=== PATIENT | male | born 1955 | race Caucasian/White ===

== ENCOUNTER 2020-12-09 16:31 | Outpatient (CLI) | payer OTHER, SELFPAY ==
--- NOTE | 2020-12-09 | ECG_ITS ---
Measurements Intervals [place] Rate: 62 P: 9 MD: 152 QRS: 49 QRSD: 109 T: 65 QT: 414 QTc: 423 Interpretive Statements SINUS RHYTHM INCOMPLETE RIGHT BUNDLE BRANCH BLOCK BASELINE ARTIFACT- AVL, AVF BORDERLINE ECG Electronically Signed On 12-09-2020 17:41:06 CDT by Gaurav Johnson D.O.
[2020-12-09 16:56] LABS: Hematocrit 42.9 % (42.0-52.0); Hemoglobin 14.8 g/dL (14.0-18.0)
[2020-12-09 17:06] LABS: Estimated Glomerular Filt Rate > 60; Glucose 116 mg/dL (75-110)
[2020-12-09 17:12] LABS: Urine Cotinine NEGATIVE
[2020-12-09 18:29] LABS: Hemoglobin A1C 6.5 % (<5.7)
== END 2020-12-09 16:32 | disposition home or self-care (01) ==
PROVIDERS: Visit Provider Orthopaedic Surgery
DX: Z01.818 Encounter for other preprocedural examination (principal); M16.12 Unilateral primary osteoarthritis, left hip; I45.10 Unspecified right bundle-branch block
CPT/HCPCS: 80307; 82040; 82565; 82947; 83036; 85014; 85018; 93005

== ENCOUNTER 2021-01-19 09:40 | Outpatient (CLI) | payer OTHER, SELFPAY ==
[2021-01-19 10:59] LABS: Basophils Absolute Auto 0.1 K/mm3 (0.0-0.1); Basophils Percent Auto 1.1 % (0.2-1.2); Eosinophils Absolute Auto 0.2 K/mm3 (0-0.3); Eosinophils Percent Auto 4.2 % (0-4.4); Hematocrit 44.4 % (42.0-52.0); Hemoglobin 15.2 g/dL (14.0-18.0); Immature Granulocyte Absolute 0.02 K/mm3 (0.00-0.031); Immature Granulocyte Percent A 0.4 % (0-0.5); Lymphocytes Absolute Auto 1.68 K/mm3 (0.9-3.2); Lymphocytes Percent Auto 35.6 % (18.3-44.2); Mean Corpuscular HGB Conc 34.2 g/dl (32-36); Mean Corpuscular Hemoglobin 30.5 pg (26-34); Mean Corpuscular Volume 89.2 fl (80-100); Monocytes Absolute Auto 0.4 K/mm3 (0.1-0.6); Monocytes Percent Auto 8.9 % (2.6-8.5); Neutrophils Absolute Auto 2.4 K/mm3 (1.3-6.7); Neutrophils Percent Auto 49.8 % (45.5-73.1); Platelet Count Result 152 k/mm3 (150-375); Red Blood Count 4.98 M/mm3 (4.6-6.20); Red Cell Distribution Width 12.7 % (11.5-14.5); White Blood Count 4.7 K/mm3 (4.5-10.0)
[2021-01-19 11:08] LABS: Hemoglobin A1C 6.7 % (<5.7)
[2021-01-19 11:09] LABS: Albumin Level 4.2 g/dL (3.5-5.1); Estimated Glomerular Filt Rate > 60; Glucose 117 mg/dL (75-110)
[2021-01-19 11:10] LABS: Urine Cotinine NEGATIVE
== END 2021-01-19 09:41 | disposition home or self-care (01) ==
LOC: ANHSURGERY 09:47
PROVIDERS: PCP Family Medicine; Visit Provider Orthopaedic Surgery
DX: M16.12 Unilateral primary osteoarthritis, left hip (principal)
CPT/HCPCS: 80307; 82040; 82565; 82947; 83036; 85025; 87081

== ENCOUNTER 2021-02-10 01:02 | Day surgery (SDC) | payer OTHER, SELFPAY ==
[2021-01-19 09:57] VITALS: BP 148/87; PULSE 62; RESP 16; TEMP 36.4; O2SAT 97; BMI 29.1
--- NOTE | 2021-02-09 10:18 | WPDANESEPPF ---
Anes - Initial Pre Proc Eval Procedure: Operation Date: 02/10/21 07:30 Proposed Procedures p Left Total Hip Arthroplasty - Nayan Allred MD Date/Time: 02/09/21 10:18 Surgeon: Nayan Allred MD Pre Op Diagnosis: Primary OA Left Hip Patient Data Age: 65 Gender: M Height: 1.93 m Weight: 108.6 kg Last Vital Signs Temp 36.4 C 01/19/21 09:57 Pulse 62 01/19/21 09:57 Resp 16 01/19/21 09:57 BP 148/87 H 01/19/21 09:57 Pulse Ox 97 01/19/21 09:57 Allergies Allergy/AdvReac Type Severity Reaction Status Date / Time meperidine AdvReac Unknown Nausea Verified 02/10/21 06:19 Home Medications Medication Instructions Recorded Confirmed Type hydrocodone-acetaminophen 1 tablet PO Q6-8H PRN 01/19/21 02/10/21 History naproxen sodium [Aleve] 440 mg PO BID PRN 01/19/21 02/10/21 History amoxicillin 500 mg tablet 500 mg PO ONCE #4 tablet 02/07/21 Rx Patient hx anesthesia problems: none Family hx anesthesia problems: none PMFSH Past Medical History Medical History (Updated 09/10/19 @ 11:28 by Nayan Allred MD) Biceps rupture, distal (~02/26/18) Primary osteoarthritis of left hip Surgical History Surgical History (Updated 09/10/19 @ 10:58 by Yuli Ortiz) History of arthroscopy of knee (~2007) History of arthroscopy of knee (~1996) History of partial knee replacement (~03/21/16) History of total right hip arthroplasty (~08/30/17) Family History Family History (Updated 02/11/16 @ 23:19 by DOCTOR UNKNOWN) Mother Family history of diabetes mellitus in first degree relative Social History Social History Smoking status: Never smoker Alcohol intake: current Alcohol use details: 1-2 OZ PER WEEK OF [place] Substance use: never Living arrangements: with family Additional living arrangements comments: Spiritual care concerns: No Anes - Eval Final PreProcedure Day of Procedure 02/09/21 10:18 Patient weight: overweight Heart: regular rate and rhythm Lungs: clear to auscultation and normal air movement Airway: Mallampati scale class II Neurological: alert and oriented Last oral intake: >/= 8 hours ASA classification: II Emergent: no Anesthetic plan: proceed Anesthesia type and monitoring: general ETT and standard monitoring Informed Consent: The patient's anesthetic plan and its attendant risks and benefits were discussed with the patient/family/POA. Questions were solicited and answers provided to the satisfaction of the patient/family/POA.
[2021-02-10] VITALS (19 sets, daily range): BP systolic 114–149; BP diastolic 66–93; PULSE 53–74; RESP 7–18; TEMP 36.2–37.1; O2SAT 92–99; BMI 29.1
--- NOTE | ~2021-02-10 | XR_ITS ---
EXAMINATION: XR hip LT min 2V DATE: 02/10/2021 10:45 INDICATION: Postoperative evaluation following left total hip arthroplasty TECHNIQUE: Anteroposterior and lateral views of the left hip were obtained. COMPARISON: 11/29/2020 FINDINGS: Interval placement of a left total hip arthroplasty which appears well seated in near anatomic alignm ent. Again seen is a prior right total hip arthroplasty. Surgical expected subcutaneous gas in the po stoperative bed. No fractures identified. IMPRESSION: 1. Left total hip arthroplasty, negative for postoperative purposes. Reviewed, dictated and finalized at location A.
[2021-02-10] MEDS: ACETAMINOPHEN 500 MG TABLET 1000 MG PO (06:29)
[2021-02-10] MEDS: LACTATED RINGERS 1,000 ML 30 ML IV CONT ×2 (07:04→10:18)
[2021-02-10] MEDS: TRANEXAMIC ACID 1,000MG/ISO100 1,000 MG/100 ML BAG 200 MG IVPB (07:04)
--- NOTE | 2021-02-10 07:10 | WPDHPUPDATE1 ---
History and Physical Update Update Date/Time: 02/10/21 07:10 History and Physical has been reviewed, including an updated exam of the patient. There are NO changes in the patient's condition. Risks, benefits, and alternatives have been discussed and questions answered. Patient agrees to proceed with procedure.
--- NOTE | 2021-02-10 07:20 | SUR.PREOP ---
0715; NOTIFIED DR DODGE OF SKIN INTERGRITY. LT OUTER CALF HAS HEALING SCAB. LT INNER THIGH TINY INGROWN HAIR, AND WHEN THE TECH SHAVED, SHE NICKED THE LT HIP X3 IN PT'S STRETCH FIGUEROA. NO BLEEDING. DR DODGE ACKNOWLEDGED.
[2021-02-10] MEDS: ceFAZolin 2 GM/D5W 50 ML 2 GM/50 ML BAG IVPB ×3 (07:34→23:37)
--- NOTE | 2021-02-10 10:47 | W.PM.PROC2 ---
Procedure Note - Detailed Date of Procedure 02/10/21 Pre-op Diagnosis Primary OA Left Hip Post-op Diagnosis same Procedure Performed Left total hip arthroplasty. Surgeon Nayan Allred MD Manager Small Business Esperanza Odonnell PA-C Anesthesia general Description of Procedure Physician casting assistant, Esperanza Odonnell PA-C, required for surgery; including patient positioning, draping, tissue retraction, maintaining instrument position, hip dislocation and reduction, wound closure, and dressing placement. OPERATIVE DETAILS: The patient was given preoperative antibiotics. A general anesthetic was administered. The patient was carefully placed in the lateral decubitus position on the PEG board. The shoulders and hips were carefully positioned for component and leg length positioning reference. The hip was prepped and draped in the usual sterile fashion. A longitudinal incision was created over the posterior aspect of the greater trochanter. Careful dissection was brought down through the deep fascia with electrocautery. A minimally invasive optimized posterior approach to the hip was performed. The short external rotators and capsule were taken down in an L-shaped capsulotomy. The tissue was tagged for later repair using number 2 high strength suture. The femoral neck was measured and taken in situ. The femoral head was removed. The acetabulum was carefully exposed. The inferior capsule was released. The labrum was resected. The acetabulum was sequentially reamed to the intended cup size. The cup was impacted into position with excellent press-fit. Typical anatomic landmarks, including the bony contact points as well as the inferior transverse acetabular ligament were used to confirm cup positioning with preoperative templating. Attention was turned to the femur, which was carefully exposed. The hip was reamed and then broached sequentially. Excellent press-fit was obtained with the broach. The hip was trialed. Measurements were utilized, including the lesser trochanter as well as the center of the femoral head and the tip of the trochanter, and excellent assessment of the offset and leg lengths were confirmed. The real component was impacted into position. Trialing confirmed appropriate leg length and offset with soft tissue balancing as well apparent feel of the leg, both at the knee and the heel. Soft tissues were assessed using the the iliotibial band. Reduction of the posterior capsule and external rotators were also used as a secondary assessment. The hip was copiously irrigated with pulsatile lavage antibiotic solution periodically throughout the procedure. The real components were then assembled and reduced. The hip was stable throughout typical maneuvers, including extension, external rotation to 70 degrees, the position of sleep as well as flexion to 90 degrees with internal rotation to 40 degrees. The shake test confirmed stability without impingement. Osteophytes were removed from the anterior femur and acetabulum to improve impingement free motion Yes. The short external rotators and capsule were repaired back to the posterior trochanter through drill holes. The deep fascia was repaired with running number 2 Quill suture, followed by 0 Stratafix suture and 2-0 Stratafix suture in the dermis. Steri-Strips were placed on the skin, followed by a sterile silver occlusive dressing. There were no complications. Meticulous hemostasis was maintained with the AquaMantys device. The patient was brought to the recovery room in stable condition. There were no complications. Implants The Accolade II hip stem, 127 degree size 8 , was utilized with excellent press-fit. The 46 mm Trident II acetabular component was impacted with excellent press-fit stability. The +7.5 , 36 mm Biolox ceramic femoral head was utilized. Estimated Blood Loss -300.0 Drains No Complications No immediate complications Condition stable Disposition PACU
[2021-02-10] MEDS: fentaNYL CITRATE INJ (*CRX) 100 MCG/2 ML VIAL 25 MCG IV PUSH ×4 (10:57→11:31)
--- NOTE | 2021-02-10 12:12 | SUR.PHASEI ---
PT EATING ICE. AWAITING BED ASSIGNMENT.
--- NOTE | 2021-02-10 14:13 | PC.NURSE ---
Admission Note: The patient,Jc Caldera,65 y/o, was given written information regarding hospital policies, unit procedures and contact persons. Patient's smoking status: Never smoker.
[2021-02-10 15:00] LABS: Hematocrit 40.6 % (42.0-52.0); Hemoglobin 13.6 g/dL (14.0-18.0)
[2021-02-10] MEDS: KETOROLAC 15 MG/ML VIAL (*BKC) IV PUSH ×2 (15:55→21:49)
[2021-02-10] MEDS: oxyCODONE HCL (*CRX) 5 MG TAB IR PO (17:04)
[2021-02-10] MEDS: DOCUSATE SODIUM 100 MG CAPSULE PO (17:04)
[2021-02-10] MEDS: ASPIRIN 81 MG ENTERIC TABLET PO (17:04)
[2021-02-10] MEDS: FAMOTIDINE 20 MG TABLET PO (21:49)
[2021-02-11] MEDS: KETOROLAC 15 MG/ML VIAL (*BKC) IV PUSH ×2 (02:53→09:49)
[2021-02-11 03:37] VITALS: BP 116/65; PULSE 62; RESP 18; TEMP 36.3; O2SAT 93
[2021-02-11 05:57] LABS: Basophils Percent Auto 0.4 % (0.2-1.2); Hematocrit 37.8 % (42.0-52.0); Hemoglobin 12.5 g/dL (14.0-18.0); Immature Granulocyte Absolute 0.02 K/mm3 (0.00-0.031); Immature Granulocyte Percent A 0.3 % (0-0.5); Immature Platelet Fraction Pct 6.6 % (0.9-11.2); Lymphocytes Absolute Auto 1.31 K/mm3 (0.9-3.2); Lymphocytes Percent Auto 17.5 % (18.3-44.2); Mean Corpuscular HGB Conc 33.1 g/dl (32-36); Mean Corpuscular Hemoglobin 30.3 pg (26-34); Mean Corpuscular Volume 91.5 fl (80-100); Mean Platelet Volume 11.4 fl (7.4-10.4); Monocytes Absolute Auto 0.6 K/mm3 (0.1-0.6); Monocytes Percent Auto 7.5 % (2.6-8.5); Neutrophils Absolute Auto 5.6 K/mm3 (1.3-6.7); Neutrophils Percent Auto 74.3 % (45.5-73.1); Platelet Count Result 117 k/mm3 (150-375); Red Blood Count 4.13 M/mm3 (4.6-6.20); White Blood Count 7.5 K/mm3 (4.5-10.0)
[2021-02-11 06:09] LABS: Anion Gap 6 mmol/L (8-16); Blood Urea Nitrogen 19 mg/dL (9-20); Calcium 8.3 mg/dL (8.4-10.2); Carbon Dioxide 25 mmol/L (22-30); Chloride 106 mmol/L (98-107); Estimated CRCL calculation 79 ml/min; Estimated Glomerular Filt Rate > 60; Glucose 167 mg/dL (65-110); Potassium 4.2 mmol/L (3.4-5.0); Sodium 137 mmol/L (137-145)
[2021-02-11] MEDS: ceFAZolin 2 GM/D5W 50 ML 2 GM/50 ML BAG IVPB (06:58)
[2021-02-11 07:37] VITALS: BP 121/74; PULSE 66; RESP 20; TEMP 36.6; O2SAT 94
--- NOTE | 2021-02-11 08:19 | P.PNAN_ITS ---
Anes - Prog Note Post-Op Date/Time: 02/11/21 08:19 Cardiovascular status: normal Respiratory status: normal Airway patency: baseline Mental status: baseline Post-Op hydration status: normal Vital Signs: Last Vital Signs Temp 36.3 C L 02/11/21 03:37 Pulse 62 02/11/21 03:37 Resp 18 02/11/21 03:37 BP 116/65 02/11/21 03:37 Pulse Ox 93 02/11/21 03:37 Pain Score (VAS): 0 I/O: Intake & Output 02/10/21 02/11/21 02/11/21 23:59 07:59 15:59 Intake Total 490 150 Balance 490 150 Laboratory Tests 02/11/21 05:27 02/11/21 05:27 02/10/21 02/10/21 02/11/21 07:02 14:36 05:27 WBC 7.5 RBC 4.13 L Hgb 13.6 L 12.5 L Hct 40.6 L 37.8 L MCV 91.5 MCH 30.3 MCHC 33.1 RDW 13.0 Plt Count 117 L MPV 11.4 H Immature Gran % (Auto) 0.3 Neut % (Auto) 74.3 H Lymph % (Auto) 17.5 L Alexander % (Auto) 7.5 Eos % (Auto) 0.0 Baso % (Auto) 0.4 Lymph # (Auto) 1.31 Alexander # (Auto) 0.6 Eos # (Auto) 0.0 Baso # (Auto) 0.0 Abs Immat Gran (auto) 0.02 Absolute Neuts (auto) 5.6 Absolute Nucleated RBC 0.0 Nucleated RBC % 0.0 % Immature Plt Fraction 6.6 Sodium Potassium Chloride Carbon Dioxide Anion Gap BUN Creatinine Estim Creat Clear Calc Estimated GFR Glucose Calcium Blood Type O Positive Antibody Screen Negative 02/11/21 05:27 WBC RBC Hgb Hct MCV MCH MCHC RDW Plt Count MPV Immature Gran % (Auto) Neut % (Auto) Lymph % (Auto) Alexander % (Auto) Eos % (Auto) Baso % (Auto) Lymph # (Auto) Alexander # (Auto) Eos # (Auto) Baso # (Auto) Abs Immat Gran (auto) Absolute Neuts (auto) Absolute Nucleated RBC Nucleated RBC % % Immature Plt Fraction Sodium 137 Potassium 4.2 Chloride 106 Carbon Dioxide 25 Anion Gap 6 L BUN 19 Creatinine 1.00 Estim Creat Clear Calc 79 Estimated GFR > 60 Glucose 167 H Calcium 8.3 L Blood Type Antibody Screen Post-procedural complaints: none Patient Feedback: Patient satisfied with anesthetic care.
[2021-02-11] MEDS: ASPIRIN 81 MG ENTERIC TABLET PO (09:30)
[2021-02-11] MEDS: DOCUSATE SODIUM 100 MG CAPSULE PO (09:30)
--- NOTE | 2021-02-11 10:54 | P.DS_ITS ---
DS: Admitting Diagnosis Admitting Diagnosis OA Left hip DS: Discharge Diagnosis Discharge Diagnosis (1) Status post total hip replacement, left: Code(s): Z96.642 - Presence of left artificial hip joint Status: Acute Assessment and Plan: Postop day 1: Left total hip arthroplasty. Patient tolerated procedure well. No complications. Pain manageable with pain medication. No numbness or tingling. We had a lengthy discussion regarding postoperative wound care, limitations, expectations, and exercises. Patient shows good understanding. He has had initial physical therapy and is tolerating it well. DVT prophylaxis: 81 mg baby aspirin b.i.d. for 14 days. Pain medication: Percocet. Patient has followup appointment with Dr. Allred in 3 weeks. DS: Summary Hospital Course Reason for hospitalization: Total hip arthroplasty Hospital Course: Patient tolerated procedure well. Has had initial PT/OT. Status at Discharge Functional status at discharge: uses cane/walker Overall status at discharge: patient is progressing back to baseline Time Spent with Patient Time attestation: Total time spent providing and/or coordinating discharge services: Exam Narrative: Normal weight, tall Male. Resting comfortably in bed. Wearing compression socks bilaterally. Dressing dry and intact with no drainage. Moderate swelling. No ecchymosis. No erythema. No hematoma. Range of motion limited due to pain. Calf nontender. Thigh nontender. Neurologic status intact. No varicosities. Distal pulses palpable. DS: Data Data Completed and Pending Labs on day of discharge: Labs from last 24 hours 02/11/21 02/11/21 02/10/21 05:27 05:27 14:36 WBC 7.5 RBC 4.13 L Hgb 12.5 L 13.6 L Hct 37.8 L 40.6 L MCV 91.5 MCH 30.3 MCHC 33.1 RDW 13.0 Plt Count 117 L MPV 11.4 H Immature Gran % (Auto) 0.3 Neut % (Auto) 74.3 H Lymph % (Auto) 17.5 L Sibley % (Auto) 7.5 Eos % (Auto) 0.0 Baso % (Auto) 0.4 Lymph # (Auto) 1.31 [place] # (Auto) 0.6 Eos # (Auto) 0.0 Baso # (Auto) 0.0 Abs Immat Gran (auto) 0.02 Absolute Neuts (auto) 5.6 Absolute Nucleated RBC 0.0 Nucleated RBC % 0.0 % Immature Plt Fraction 6.6 Sodium 137 Potassium 4.2 Chloride 106 Carbon Dioxide 25 Anion Gap 6 L BUN 19 Creatinine 1.00 Estim Creat Clear Calc 79 Estimated GFR > 60 Glucose 167 H Calcium 8.3 L Discharge Plan Discharge Patient Disposition: Home, Self-Care Discharge Instructions: See Blue instruction sheet Stand Alone Forms: General Discharge Instructions Follow-up/Referrals: Esperanza Odonnell PA [Physician Clinical Appeals Auditor] - Discharge Medications: New aspirin 81 mg tablet,delayed release (DR/EC) 81 mg PO BID 14 Days Qty: 28 RF: 0 oxycodone-acetaminophen 5-325 mg tablet 1 - 2 tablet PO Q4-6H MDD 6 PRN (Reason: pain) Qty: 30 RF: 0 Continued naproxen sodium [Aleve] 220 mg Capsule 440 mg PO BID PRN (Reason: Pain) RF: 0 Held hydrocodone-acetaminophen 5-325 mg tablet 1 tablet PO Q6-8H PRN (Reason: Pain) RF: 0 Hold Instructions: Resume on 03/04/21. Hold while taking Oxycodone.
[2021-02-11] MEDS: FAMOTIDINE 20 MG TABLET PO (11:26)
== END 2021-02-11 13:25 | disposition home or self-care (01) ==
LOC: ANHSURGERY 05:56 → ANH2MED 13:57
PROVIDERS: PCP Family Medicine; Visit Provider Orthopaedic Surgery
PROC: (CPT 27130; principal; 2021-02-10 07:30)
DX: M16.12 Unilateral primary osteoarthritis, left hip (principal); Z79.899 Other long term (current) drug therapy
CPT/HCPCS: 27130; 36415; 73502; 80048; 85014; 85018; 85025; 85055; 86850; 86900; 86901; 97110; 97116; 97161; 97165; A9270; C1776; J0131; J0171; J0690; J1170; J1885; J2250; J2270; J2795; J3010; J7120

== ENCOUNTER 2022-11-15 14:09 | Outpatient (CLI) | payer OTHER, SELFPAY | END 2022-11-15 14:10 | disposition home or self-care (01) | LOC: ANHBWCAUD 14:10 | PROVIDERS: PCP Family Medicine; Visit Provider Otolaryngology | DX: H93.12 Tinnitus, left ear (principal); H90.3 Sensorineural hearing loss, bilateral | CPT/HCPCS: 92557; 92567 ==